=== PATIENT | male | born 1960 | race Caucasian/White ===

== ENCOUNTER → 2023-03-18 | Outpatient (CLI) | payer BC ==
[2023-03-19 02:19] LABS: HCT 50.5 % (39.6-50.0); HGB 16.2 d/dL (13.0-17.0); MCH 30.1 pg (27.0-32.0); MCHC 32.1 d/dL (32.0-37.0); MCV 93.9 FL (80.0-97.0); Mean Platelet Volume 10.8 FL (9.5-12.2); NRBC Per 100 WBC 0 X 10*3/uL (0.00-0.01); Platelet Count 251 X 10*3/uL (140-440); RBC 5.38 X 10*6/uL (4.40-5.60); RDW 13.4 % (11.5-14.5); WBC 7.97 X 10*3/uL (4.50-10.00)
[2023-03-19 02:53] LABS: Prostate Specific Antigen 10.1 ng/mL (0.000-4.500)
== END | disposition home or self-care (01) ==
LOC: LABWHC1 13:34
PROVIDERS: ATTEND Internal Medicine Endocrinology, Diabetes & Metabolism
DX: E03.8 Other specified hypothyroidism (principal); E29.1 Testicular hypofunction; R73.09 Other abnormal glucose
CPT/HCPCS: 36415; 83036; 84153; 84403; 84443; 85027